=== PATIENT | female | born 1980 ===

== ENCOUNTER 2017-04-07 09:18 | Observation (INO) | payer MEDICAID ==
--- NOTE | 2017-04-07 09:23 | ED PDOC ---
Arrival/HPI - General Time Seen by Provider: 04/07/17 09:21 Historian: Patient - History of Present Illness Narrative History of Present Illness (Text): 04/07/17 09:22 36 year old female, pmh including htn, nkda, complaining of lt. sided chest pain x 1 month. Pt. stated that she has on and off chest pain x 1 month, last episode was this morning while resting, sharp pain, no pain medication taken at home, no coughing or night sweat, no hemoptysis, no recent illness or URI symptoms, no leg or arm swelling/pain, not on any control or recent traveling, was seen at the [facility] about 1 month ago and was observe then discharge home, never follow up with her own pmd or record producer, no rash, no other medical or psychological complaints. Past Medical History - Provider Review Nursing Documentation Reviewed: Yes - Cardiac Hx Cardiac Disorders: Yes Hx Heart Murmur: Yes Hx Hypertension: Yes ( PER PT BP RUNS HIGH SOMETIMES, NOT DIAGNOSED, NOT ON MEDS) - HEENT Other/Comment: WEARS GLASSES, CONTACTS - Hematological/Oncological Hx Blood Disorders: Yes Hx Anemia: Yes Hx Blood Transfusions: Yes ( AN -JAUNDICED) Hx Blood Transfusion Reaction: No - Gastrointestinal Hx Gastrointestinal Disorders: Yes Hx Gastroesophageal Reflux: Yes - Anesthesia Hx Anesthesia: No - Suicidal Assessment Feels Threatened In Home Enviroment: No Family/Social History - Physician Review Nursing Documentation Reviewed: Yes Family/Social History: Unknown Family HX Smoking Status: Light Smoker < 10 Cigarettes Daily Allergies/Home Meds Allergies/Adverse Reactions: Allergies No Known Allergies Allergy (Verified 04/07/17 09:28) Home Medications: Home Meds Medication Instructions Recorded Confirmed No Known Home Med 09/14/16 04/07/17 Review of Systems - Review of Systems Constitutional: absent: Fatigue, Fevers Eyes: absent: Vision Changes ENT: absent: Hearing Changes Respiratory: absent: SOB, Cough, Sputum, Wheezing Cardiovascular: Chest Pain. absent: Palpitations, Edema, Calf Pain, PALOMO, Orthopnea, Syncope Gastrointestinal: absent: Abdominal Pain, Diarrhea, Vomiting Musculoskeletal: absent: Arthralgias, Back Pain, Myalgias Skin: absent: Rash, Pruritis, Skin Lesions Neurological: absent: Headache, Dizziness Psychiatric: absent: Anxiety, Depression, Suicidal Ideation Physical Exam Vital Signs Reviewed: Yes Vital Signs Temp Pulse Resp BP Pulse Ox 04/07/17 11:53 61 16 161/83 H 98 04/07/17 10:19 67 16 141/77 100 04/07/17 09:33 98.2 F 72 17 164/75 H 99 Temperature: Afebrile Blood Pressure: Hypertensive Pulse: Regular Respiratory Rate: Normal Appearance: Positive for: Well-Appearing, Non-Toxic, Comfortable Pain Distress: Moderate Mental Status: Positive for: Alert and Oriented X 3 - Systems Exam Head: Present: Atraumatic, Normocephalic Pupils: Present: PERRL Extroacular Muscles: Present: EOMI Conjunctiva: Present: Normal Mouth: Present: Moist Mucous Membranes Neck: Present: Normal Range of Motion Respiratory/Chest: Present: Clear to Auscultation, Good Air Exchange, Tender to Palpation (chest pain somewhat reproducible by palpating the lt. pectoralist major muscle region, no visible vesicular or erythematous rash noted. ). No: Respiratory Distress, Accessory Muscle Use, Wheezes, Decreased Breath Sounds, Retracting, Rhonchi, Tachypneic Cardiovascular: Present: Regular Rate and Rhythm, Normal S1, S2, Other (no pedal edema). No: Murmurs Abdomen: Present: Normal Bowel Sounds. No: Tenderness, Distention, Peritoneal Signs, Rebound, Guarding Back: Present: Normal Inspection. No: CVA Tenderness, Midline Tenderness Upper Extremity: Present: Normal Inspection. No: Cyanosis, Edema Lower Extremity: Present: Normal Inspection. No: Edema Neurological: Present: GCS=15, CN II-XII Intact, Speech Normal, Motor Func Grossly Intact, Gait Normal, Memory Normal Skin: Present: Warm, Dry, Normal Color. No: Rashes Psychiatric: Present: Alert, Oriented x 3, Normal Insight, Normal Concentration Medical Decision Making ED Course and Treatment: 04/07/17 09:38 -labs/ua/uds -ekg -cxr -IV toradol/pepcid 04/07/17 11:39 -HEART Score is low -PERC is negative -EKG: SR @ 72 BPM with 1 PVC, no ST elevation or depression, no T wave inversion , no previous comparison -Chest xray show no active disease -Urine hcg is negative. -Pain decreased with toradol but chest pain still remain, aspirin 325mg po ordered. -Labs are non-significant but the troponin is indeterminate level with 0.09 which will need trending, offer admission and explained to the patient that she will need to be admitted and evaluated by the record producer since her troponin is 0.09 with no previous comparison. 04/07/17 12:00 -I spoke to Dr. Sandhu, hospitalist conservation or heritage architect, discussed about the labs/radiology result, agreed to admit the patient for observation and troponin trending. -I discussed with Dr. Mae about the/case/labs/radiology result, agreed this patient needs to be admitted to rule out ACS. - Lab Interpretations Lab Results: 04/07/17 09:40 04/07/17 09:40 Lab Results 04/07/17 09:56: Urine Opiates Screen Negative, Urine Methadone Screen Negative, Ur Barbiturates Screen Negative, Ur Phencyclidine Scrn Negative, Ur Amphetamines Screen Negative, U Benzodiazepines Scrn Negative, U Oth Cocaine Metabols Negative, U Cannabinoids Screen Negative 04/07/17 09:56: Urine Color Light yellow, Urine Appearance Clear, Urine pH 6.5, Ur Specific [place] 1.020, Urine Protein Negative, Urine Glucose (UA) Negative, Urine Ketones Negative, Urine Blood Negative, Urine Nitrate Negative, Urine Bilirubin Negative, Urine Urobilinogen 0.2, Ur Leukocyte Esterase Trace H, Urine RBC Negative, Urine WBC 0 - 2, Ur Epithelial Cells 0 - 2, Urine Bacteria None 04/07/17 09:40: Lactate Dehydrogenase 452, Total Creatine Kinase 63, Troponin I 0.09 04/07/17 09:40: WBC 9.7, RBC 4.79, Hgb 12.5, Hct 37.9, MCV 79.1 L, MCH 26.1, MCHC 33.0, RDW 16.1 H, Plt Count 260, MPV 9.9, Gran % 66.4, Lymph % (Auto) 24.6 , [place] % (Auto) 7.2 H, Eos % (Auto) 1.6, Baso % (Auto) 0.2, Gran # 6.44, Lymph # (Auto) 2.4, [place] # (Auto) 0.7 H, Eos # (Auto) 0.2, Baso # (Auto) 0.02 04/07/17 09:40: Sodium 141, Potassium 4.1, Chloride 107, Carbon Dioxide 24, Anion Gap 14, BUN 13, Creatinine 0.7, Est GFR ( Amer) > 60, Est GFR (Non- Af Amer) > 60, Random Glucose 88, Calcium 9.4, Magnesium 1.9, Total Bilirubin 0.5, AST 17, ALT 24, Alkaline Phosphatase 81, Total Protein 7.3, Albumin 3.9, Globulin 3.4, Albumin/Globulin Ratio 1.2 - RAD Interpretation Radiology Orders: 04/07/17 09:33 CHEST PORTABLE [RAD] Stat LUNGS: No active pulmonary disease. PLEURA: No significant pleural effusion identified, no pneumothorax apparent. CARDIOVASCULAR: Normal. OSSEOUS STRUCTURES: No significant abnormalities. VISUALIZED UPPER ABDOMEN: Normal. OTHER FINDINGS: None. IMPRESSION: No active disease. Manager Golf: Radiologist - EKG Interpretation EKG Interpretation (Text): 04/07/17 09:39 -EKG: SR @ 72 BPM with 1 PVC, no ST elevation or depression, no T wave inversion , no previous comparison Interpreted by ED Physician: Yes Type: 12 lead EKG Comparison: No previous EKG avail. - Medication Orders Current Medication Orders: Aspirin (Ecotrin) 81 mg PO DAILY RACHEL Atorvastatin Calcium (Lipitor) 10 mg PO DIN RACHEL Famotidine (Pepcid) 40 mg PO HS RACHEL Discontinued Medications Aspirin (Aspirin) 325 mg PO STAT STA Stop: 04/07/17 11:39 Last Admin: 04/07/17 12:00 Dose: 325 mg Famotidine (Pepcid) 20 mg IVP STAT STA Stop: 04/07/17 09:37 Last Admin: 04/07/17 10:13 Dose: 20 mg IVP Administration Document 04/07/17 10:13 LM (Rec: 04/07/17 10:13 [facility] [id number]) Charges for Administration # of IVP Administrations 1 Ketorolac Tromethamine (Toradol) 30 mg IVP STAT STA Stop: 04/07/17 09:34 Last Admin: 04/07/17 10:12 Dose: 30 mg MAR Pain Assessment Document 04/07/17 10:12 [facility] (Rec: 04/07/17 10:13 LM [id number]) Pain Reassessment Is this a pain reassessment? No Sleep Is patient sleeping during reassessment? No Presence of Pain Presence of Pain Yes Pain Scale Used Pain Scale Used Numeric Location Left, Right or Bilateral Left Pain Location Body Site Chest Description Description Sharp Intensity of Pain at present 6 IVP Administration Document 04/07/17 10:12 [facility] (Rec: 04/07/17 10:13 [facility] [id number]) Charges for Administration # of IVP Administrations 1 - PA / EXERCISE SPECIALIST / Resident Statement MD/DO has reviewed & agrees with the documentation as recorded. Disposition/Present on Arrival - Present on Arrival Any Indicators Present on Arrival: No History of DVT/PE: No History of Uncontrolled Diabetes: No Urinary Catheter: No History of Decub. Ulcer: No - Disposition Have Diagnosis and Disposition been Completed?: Yes Diagnosis: Chest pain Disposition Time: 12:02 Patient Plan: Admission, Observation, Telemetry Patient Problems: Current Active Problems Problem Status Onset Chest pain Acute Condition: STABLE
[2017-04-07 09:50] LABS: BASO # 0.02 K/mm3 (0.0-2.0); BASO % 0.2 % (0.0-3.0); EOS # 0.2 (0.0-0.7); EOS % 1.6 % (1.5-5.0); GRAN # 6.44 (1.4-6.5); GRAN % 66.4 % (50.0-68.0); HEMOGLOBIN 12.5 g/dL (12.0-16.0); LYMPH # 2.4 (1.2-3.4); LYMPH % 24.6 % (22.0-35.0); MEAN CELL VOLUME 79.1 fl (80.0-105.0); MEAN CORPUSCULAR HEMOGLOBIN 26.1 pg (25.0-35.0); MEAN PLATELET VOLUME 9.9 fl (7.0-11.0); MONO # 0.7 (0.1-0.6); MONO % 7.2 % (1.0-6.0); RBC 4.79 10^6/uL (3.5-6.1); RED CELL DISTRIBUTION WIDTH 16.1 % (11.5-14.5); WHITE BLOOD COUNT 9.7 10^3/ul (4.5-11.0)
[2017-04-07 09:59] LABS: ALB/GLOB RATIO 1.2 (1.1-1.8); ALBUMIN 3.9 g/dL (3.0-4.8); ALT/SGPT 24 U/L (7-56); AST/SGOT 17 U/L (14-36); BLOOD UREA NITROGEN 13 mg/dL (7-21); CALCIUM 9.4 mg/dL (8.4-10.5); GFR AFRICAN-AMERICAN > 60; GFR NON-AFRICAN AMERICAN > 60; MAGNESIUM 1.9 mg/dL (1.7-2.2)
[2017-04-07 10:00] LABS: PH,URINE 6.5 (4.7-8.0); URINE BILIRUBIN NEGATIVE (NEGATIVE); URINE BLOOD NEGATIVE (NEGATIVE); URINE GLUCOSE (UA) NEGATIVE (NEGATIVE); URINE LEUKOCYTE ESTERASE TRACE Leu/uL (NEGATIVE); URINE NITRATE NEGATIVE (NEGATIVE); URINE PROTEIN NEGATIVE mg/dL (<30 mg/dL); URINE UROBILINOGEN 0.2 E.U./dL (<1 E.U./dL)
[2017-04-07 10:01] LABS: URINE APPEARANCE CLEAR (CLEAR); URINE COLOR LIGHT YELLOW (YELLOW)
[2017-04-07 10:09] LABS: URINE EPITHELIAL CELLS 0 - 2 /hpf (0-5); URINE RBC NEGATIVE /hpf (0-2); URINE WBC 0 - 2 /hpf (0-6)
[2017-04-07 10:23] LABS: BARBITURATES, UR NEGATIVE (NEGATIVE); BENZODIAZEPINES, UR NEGATIVE (NEGATIVE); OPIATES, UR NEGATIVE (NEGATIVE); PHENCYCLIDINE, UR NEGATIVE (NEGATIVE)
[2017-04-07 11:30] LABS: TROPONIN I 0.09 ng/mL
--- NOTE | 2017-04-07 11:52 | CARD ---
APPROVED REPORT EKG Measurement Heart [id number] <Conclusion> Sinus rhythm with occasional premature ventricular complexes Otherwise normal ECG
--- NOTE | 2017-04-07 12:34 | RAD ---
HISTORY: chest pain COMPARISON: 01/10/2017 FINDINGS: LUNGS: No active pulmonary disease. PLEURA: No significant pleural effusion identified, no pneumothorax apparent. CARDIOVASCULAR: Normal. OSSEOUS STRUCTURES: No significant abnormalities. VISUALIZED UPPER ABDOMEN: Normal. OTHER FINDINGS: None. IMPRESSION: No active disease.
--- NOTE | 2017-04-07 13:48 | CP.PCM.HP ---
<AbisaiSanjuanita - Last Filed: 04/07/17 13:49> History of Present Illness - History of Present Illness History of Present Illness: H&P for Dr. Sandhu 36F with past medical history of HTN untreated due to patient denying presents with 30min prior to arrival. Patient had one episode in the past 1.5 months ago. Patient was admitted to [facility] and had CT chest, stress test, and echo done. Discharged after two days to follow up with Shampoo Person and PMD. Patient did not go. Today, patient did not take medication for chest pain. it's characterized as sharp, radiating to the back. Patient still admits to chest pain, mild leg edema. denies shortness of breath, headaches, neck pain, arm pain, fever, chills, nausea, vomiting, diarrhea, constipation. PMH: HTN, untreated PSH: tubal-ligation Social history: smoker Family history: grandmother had heart disease. Uncle has DM and HTN most recent colonoscopy: 3 polyps - hyperplastic Present on Admission - Present on Admission Any Indicators Present on Admission: No History of DVT/PE: No History of Uncontrolled Diabetes: No Urinary Catheter: No Past Patient History - Infectious Disease Hx of Infectious Diseases: None - Past Medical History & Family History Past Medical History?: Yes - Past Social History Smoking Status: Light Smoker < 10 Cigarettes Daily - CARDIAC Hx Cardiac Disorders: Yes Hx Heart Murmur: Yes Hx Hypertension: Yes ( PER PT BP RUNS HIGH SOMETIMES, NOT DIAGNOSED, NOT ON MEDS) - HEENT Other/Comment: WEARS GLASSES, CONTACTS - HEMATOLOGICAL/ONCOLOGICAL Hx Blood Disorders: Yes Hx Anemia: Yes Hx Blood Transfusions: Yes ( AN INFANT-JAUNDICED) Hx Blood Transfusion Reaction: No - GASTROINTESTINAL Hx Gastrointestinal Disorders: Yes Hx Gastroesophageal Reflux: Yes - SURGICAL HISTORY Hx Surgeries: No - ANESTHESIA Hx Anesthesia: No Meds Allergies/Adverse Reactions: Allergies Allergy/AdvReac Type Severity Reaction Status Date / Time No Known Allergies Allergy Verified 04/07/17 09:28 Physical Exam - Constitutional Appears: Non-toxic, No Acute Distress - Head Exam Head Exam: NORMAL INSPECTION, NORMOCEPHALIC - Eye Exam Eye Exam: EOMI, Normal appearance, PERRL - ENT Exam ENT Exam: Mucous Membranes Moist, Normal Exam - Respiratory Exam Respiratory Exam: Clear to Auscultation Bilateral, NORMAL BREATHING PATTERN. absent: Accessory Muscle Use - Cardiovascular Exam Cardiovascular Exam: REGULAR RHYTHM, +S1, +S2 - GI/Abdominal Exam GI & Abdominal Exam: Normal Bowel Sounds, Soft - Extremities Exam Extremities exam: Positive for: full ROM Additional comments: no pitting edema noted - Back Exam Back exam: FULL ROM - Neurological Exam Neurological exam: Alert, CN II-XII Intact, Oriented x3 - Psychiatric Exam Psychiatric exam: Normal Affect, Normal Mood - Skin Skin Exam: Dry, Intact, Normal Color, Warm Results - Vital Signs Recent Vital Signs: Last Vital Signs Temp 98.2 F 04/07/17 09:33 Pulse 61 04/07/17 11:53 Resp 16 04/07/17 11:53 BP 161/83 H 04/07/17 11:53 Pulse Ox 98 04/07/17 11:53 - Labs Result Diagrams: 04/07/17 09:40 04/07/17 09:40 Assessment & Plan - Assessment and Plan (Free Text) Assessment: Chest pain, acs r/o echo at [facility] normal EF, f/u stress test, f/u CT scan troponin I 0.09 f/u Serial troponin Is PERC negative f/u AM lipid Panel ASA 81mg PO QD Atorvastatin 10mg QHS History of HTN untreated follow up vitals trend and consider adding ACEI Prophylaxis: pepcid 20mg QD SCD, patient can ambulate discussed with Dr. Phoebe Barone DO PGY1 - Date & Time Date: 04/07/17 Time: 13:49 <Kike Sandhu - Last Filed: 04/07/17 15:36> Results - Vital Signs Recent Vital Signs: Last Vital Signs Temp 98.2 F 04/07/17 09:33 Pulse 67 04/07/17 14:02 Resp 16 04/07/17 14:02 BP 139/83 04/07/17 14:02 Pulse Ox 99 04/07/17 14:02 - Labs Result Diagrams: 04/07/17 09:40 04/07/17 09:40 Attending/Attestation - Attestation I have personally seen and examined this patient.: Yes I have fully participated in the care of the patient.: Yes I have reviewed all pertinent clinical information: Yes Notes (Text): 04/07/17 15:32 36 year old female with past medical history of hypertension, not currently on medications, and active smoker who presents with complaint of chest pain. She reports she had recent CT chest, echocardiogram and stress test about one month ago which were negative; will review results if available. Initial troponin is indeterminate at 0.09; will trend and admit to telemetry unit to rule out ACS. Cardiology evaluation is requested. Continue with aspirin. Lipid panel ordered for AM. Monitor blood pressure closely; if elevated will consider started MARIA ELENA-I. She was counselled on smoking cessation. Kike Sandhu MD Hospitalist.
[2017-04-07 17:05] LABS: TROPONIN I 0.13 ng/mL
[2017-04-07] MEDS ORDERED: Heparin25000 units/250ml 1/2NS 25,000 UNITS/250 ML BAG IV SCH (17:15)
[2017-04-07] MEDS: Enoxaparin 60 mg Syringe SC SCH (17:37)
[2017-04-07 18:05] VITALS: BMI 35.2
--- NOTE | 2017-04-07 20:59 | US ---
EXAM: US Abdomen Limited, Right Upper Quadrant CLINICAL HISTORY: 36 years old, female; Pain; Abdominal pain; Additional info: R/O stones TECHNIQUE: Real-time ultrasound of the right upper quadrant with image documentation. COMPARISON: No relevant prior studies available. FINDINGS: Liver: Fatty infiltration. 1.5 x 1.8 x 1.6 cm hyperechoic lesion within right lobe. No intrahepatic ductal dilatation. Gallbladder: No gallstones. No wall thickening. No pericholecystic fluid. No sonographic [place]'s sign. Common bile duct: Up to 0.65 cm in diameter. No stones. Pancreas: Unremarkable as visualized. Right kidney: Normal echogenicity. No hydronephrosis. IMPRESSION: 1. Borderline biliary ductal dilatation. Correlate with laboratory values. Consider MRCP. 2. Liver lesion, nonspecific but possibly hemangioma. Recommend nonemergent MRI. 3. Incidental/non-acute findings are described above.
[2017-04-07 22:44] LABS: TROPONIN I 0.09 ng/mL
--- NOTE | 2017-04-08 01:12 | CON ---
DATE: CARDIOLOGY CONSULTATION REASON FOR CONSULTATION: Chest pain. HISTORY OF PRESENT ILLNESS: Patient is a 36-year-old female who is a [employer] employee, presented because of chest discomfort. The patient stated that as she was combing her daughter's head in the morning, she started to feel a retrosternal chest pain that got worse over the following few seconds and she had to lie on her back until she got some relief. The patient was admitted 1-1/2 months ago to [facility], underwent an echocardiographic study and Myoview stress test, and was told it was okay. The patient at this moment is chest pain free. SOCIAL HISTORY: Patient is a smoker. 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 MENSTRUAL HISTORY: Last menstrual period was around 03/18/2017. REVIEW OF SYSTEMS: No nausea or vomiting. No fever or chills. No dizziness or syncope. PHYSICAL EXAMINATION: GENERAL: The patient is a young middle-aged female, who does not appear to be in any distress. VITAL SIGNS: Blood pressure 139/83, heart rate 69, temperature 98.2, respirations 16. HEENT: Normocephalic. NECK: No JVD. CHEST: Clear. HEART: S1 and S2 regular. ABDOMEN: Soft. EXTREMITIES: No edema. LABORATORY DATA: SMA-7 is entirely within normal limits. One set of troponin is 0.09. Urine drug screen is negative. CBC; WBC is 9.6, hemoglobin 12.5, hematocrit 37.9, platelet count 260,000. EKG; sinus rhythm with PVC. ASSESSMENT: 1. Chest pain, rule out myocardial infarction. 2. Rule out pulmonary infarction. 3. likely possibility of biliary colic. RECOMMENDATIONS: Continue aspirin 81 mg once a day, Lipitor 10 mg once a day, Pepcid at 40 mg once a day. Obtain serum D-dimer, echocardiographic study, and abdominal ultrasound. Ren Rivera MD
[2017-04-08] MEDS: Enoxaparin 60 mg Syringe SC SCH (06:50)
[2017-04-08 07:09] LABS: BASO # 0.02 K/mm3 (0.0-2.0); BASO % 0.2 % (0.0-3.0); EOS # 0.2 (0.0-0.7); EOS % 1.8 % (1.5-5.0); GRAN # 5.53 (1.4-6.5); GRAN % 62.3 % (50.0-68.0); HEMOGLOBIN 12.4 g/dL (12.0-16.0); LYMPH # 2.5 (1.2-3.4); MEAN CELL VOLUME 79.1 fl (80.0-105.0); MEAN CORPUSCULAR HEMOGLOBIN 25.9 pg (25.0-35.0); MEAN CORPUSCULAR HGB CONC 32.7 g/dl (31.0-37.0); MONO # 0.7 (0.1-0.6); MONO % 7.7 % (1.0-6.0); RBC 4.79 10^6/uL (3.5-6.1); RED CELL DISTRIBUTION WIDTH 16.1 % (11.5-14.5); WHITE BLOOD COUNT 8.9 10^3/ul (4.5-11.0)
[2017-04-08 07:20] LABS: ALB/GLOB RATIO 1.1 (1.1-1.8); ALBUMIN 3.7 g/dL (3.0-4.8); ALT/SGPT 22 U/L (7-56); AST/SGOT 21 U/L (14-36); BLOOD UREA NITROGEN 15 mg/dL (7-21); CALCIUM 9.2 mg/dL (8.4-10.5); GFR AFRICAN-AMERICAN > 60; GFR NON-AFRICAN AMERICAN > 60; HDL CHOLESTEROL 46 mg/dL (29-60)
[2017-04-08 07:30] LABS: LDL CHOLESTEROL 66 mg/dL (0-129)
--- NOTE | 2017-04-08 10:58 | CARD ---
APPROVED REPORT EKG Measurement Heart [id number] [id number] [id number] <Conclusion> Normal sinus rhythm with sinus arrhythmia Normal ECG
[2017-04-08] MEDS ORDERED: Lidocaine 2% Inj (20ml) ONE (11:37)
[2017-04-08] MEDS ORDERED: Iodixanol 320 MG/ML 200 ML BOTTLE IV ONE (11:38)
[2017-04-08] MEDS ORDERED: Midazolam 2 MG/2 ML VIAL ONE ×2 (11:38→13:34)
[2017-04-08] MEDS ORDERED: HEPARIN SODIUM/NS 2,000 ML IV ONE (11:38)
--- NOTE | 2017-04-08 12:55 | CP.PCM.DIS ---
Provider - Provider Date of Admission: 04/07/17 12:01 Attending physician: Kike Sandhu MD Primary care physician: Edilma Vasquez DO Consults: Cardio consult Dr. Rivera Time Spent in preparation of Discharge (in minutes): 35 Hospital Course - Lab Results Lab Results: Most Recent Lab Values WBC 8.9 10^3/ul (4.5-11.0) 04/08/17 06:40 RBC 4.79 10^6/uL (3.5-6.1) 04/08/17 06:40 Hgb 12.4 g/dL (12.0-16.0) 04/08/17 06:40 Hct 37.9 % (36.0-48.0) 04/08/17 06:40 MCV 79.1 fl (80.0-105.0) L 04/08/17 06:40 MCH 25.9 pg (25.0-35.0) 04/08/17 06:40 MCHC 32.7 g/dl (31.0-37.0) 04/08/17 06:40 RDW 16.1 % (11.5-14.5) H 04/08/17 06:40 Plt Count 248 10^3/uL (120.0-450.0) 04/08/17 06:40 MPV 10.0 fl (7.0-11.0) 04/08/17 06:40 Gran % 62.3 % (50.0-68.0) 04/08/17 06:40 Lymph % (Auto) 28.0 % (22.0-35.0) 04/08/17 06:40 [place] % (Auto) 7.7 % (1.0-6.0) H 04/08/17 06:40 Eos % (Auto) 1.8 % (1.5-5.0) 04/08/17 06:40 Baso % (Auto) 0.2 % (0.0-3.0) 04/08/17 06:40 Gran # 5.53 (1.4-6.5) 04/08/17 06:40 Lymph # (Auto) 2.5 (1.2-3.4) 04/08/17 06:40 [place] # (Auto) 0.7 (0.1-0.6) H 04/08/17 06:40 Eos # (Auto) 0.2 (0.0-0.7) 04/08/17 06:40 Baso # (Auto) 0.02 K/mm3 (0.0-2.0) 04/08/17 06:40 D-Dimer, Quantitative < 200 ng/mL (0-243) 04/07/17 15:50 Sodium 140 mmol/L (132-148) 04/08/17 06:40 Potassium 4.1 mmol/L (3.6-5.0) 04/08/17 06:40 Chloride 108 mmol/L (98-107) H 04/08/17 06:40 Carbon Dioxide 22 mmol/L (21-33) 04/08/17 06:40 Anion Gap 14 (10-20) 04/08/17 06:40 BUN 15 mg/dL (7-21) 04/08/17 06:40 Creatinine 0.7 mg/dl (0.7-1.2) 04/08/17 06:40 Est GFR ( Amer) > 60 04/08/17 06:40 Est GFR (Non-Af Amer) > 60 04/08/17 06:40 Random Glucose 93 mg/dL (70-110) 04/08/17 06:40 Calcium 9.2 mg/dL (8.4-10.5) 04/08/17 06:40 Magnesium 2.0 mg/dL (1.7-2.2) 04/08/17 06:40 Total Bilirubin 0.4 mg/dL (0.2-1.3) 04/08/17 06:40 AST 21 U/L (14-36) 04/08/17 06:40 ALT 22 U/L (7-56) 04/08/17 06:40 Alkaline Phosphatase 73 U/L (38-126) 04/08/17 06:40 Lactate Dehydrogenase 360 U/L (333-699) 04/07/17 22:10 Total Creatine Kinase 55 U/L (35-230) 04/07/17 22:10 Troponin I 0.09 ng/mL D 04/07/17 22:10 Total Protein 6.9 g/dL (5.8-8.3) 04/08/17 06:40 Albumin 3.7 g/dL (3.0-4.8) 04/08/17 06:40 Globulin 3.2 gm/dL 04/08/17 06:40 Albumin/Globulin Ratio 1.1 (1.1-1.8) 04/08/17 06:40 Triglycerides 84 mg/dL (35-160) 04/08/17 06:40 Cholesterol 139 mg/dL (130-200) 04/08/17 06:40 LDL Cholesterol Direct 66 mg/dL (0-129) 04/08/17 06:40 HDL Cholesterol 46 mg/dL (29-60) 04/08/17 06:40 Urine Color Light yellow (YELLOW) 04/07/17 09:56 Urine Appearance Clear (CLEAR) 04/07/17 09:56 Urine pH 6.5 (4.7-8.0) 04/07/17 09:56 Ur Specific [place] 1.020 (1.005-1.035) 04/07/17 09:56 Urine Protein Negative mg/dL (<30 mg/dL) 04/07/17 09:56 Urine Glucose (UA) Negative mg/dL (NEGATIVE) 04/07/17 09:56 Urine Ketones Negative mg/dL (NEGATIVE) 04/07/17 09:56 Urine Blood Negative (NEGATIVE) 04/07/17 09:56 Urine Nitrate Negative (NEGATIVE) 04/07/17 09:56 Urine Bilirubin Negative (NEGATIVE) 04/07/17 09:56 Urine Urobilinogen 0.2 E.U./dL (<1 E.U./dL) 04/07/17 09:56 Ur Leukocyte Esterase Trace Renetta/uL (NEGATIVE) H 04/07/17 09:56 Urine RBC Negative /hpf (0-2) 04/07/17 09:56 Urine WBC 0 - 2 /hpf (0-6) 04/07/17 09:56 Ur Epithelial Cells 0 - 2 /hpf (0-5) 04/07/17 09:56 Urine Bacteria None (NEG) 04/07/17 09:56 Urine Opiates Screen Negative (NEGATIVE) 04/07/17 09:56 Urine Methadone Screen Negative (NEGATIVE) 04/07/17 09:56 Ur Barbiturates Screen Negative (NEGATIVE) 04/07/17 09:56 Ur Phencyclidine Scrn Negative (NEGATIVE) 04/07/17 09:56 Ur Amphetamines Screen Negative (NEGATIVE) 04/07/17 09:56 U Benzodiazepines Scrn Negative (NEGATIVE) 04/07/17 09:56 U Oth Cocaine Metabols Negative (NEGATIVE) 04/07/17 09:56 U Cannabinoids Screen Negative (NEGATIVE) 04/07/17 09:56 - Hospital Course Hospital Course: H&P for Dr. Sandhu 36F with past medical history of HTN untreated due to patient denying presents with 30min prior to arrival. Patient had one episode in the past 1.5 months ago. Patient was admitted to [facility] and had CT chest, stress test, and echo done. Discharged after two days to follow up with Embossing Toolsetter and PMD. Patient did not go. During hospital stay, cardiology Dr. Rivera was consulted, patient had troponins monitored. trending upward and then trended downward (0.09, 0.13, 0.09 ). Patient had cath procedure done. Gallbladder ultrasound was done showed mild dilatation and gallstones, patient was told to follow up outpatient for further work up (ie: MRCP) Patient's sister had a cholecystectomy in the past. Lipid panel showed no Hyperlipidemia - Date & Time of H&P Date of H&P: 04/08/17 Time of H&P: 12:54 Discharge Exam - Head Exam Head Exam: NORMAL INSPECTION, NORMOCEPHALIC - Eye Exam Eye Exam: EOMI, Normal appearance Pupil Exam: NORMAL ACCOMODATION - ENT Exam ENT Exam: Mucous Membranes Moist - Neck Exam Neck exam: Full Rom - Respiratory Exam Respiratory Exam: Clear to PA & Lateral, NORMAL BREATHING PATTERN, UNREMARKABLE. absent: Accessory Muscle Use - Cardiovascular Exam Cardiovascular Exam: REGULAR RHYTHM, +S1, +S2. absent: Bradycardia, Tachycardia - GI/Abdominal Exam GI & Abdominal Exam: Normal Bowel Sounds, Unremarkable - Extremities Exam Extremities exam: full ROM - Back Exam Back exam: FULL ROM - Neurological Exam Neurological exam: Alert, CN II-XII Intact, Normal Gait, Oriented x3 - Psychiatric Exam Psychiatric exam: Normal Affect, Normal Mood - Skin Skin Exam: Dry, Intact, Normal Color, Warm Discharge Plan - Follow Up Plan Condition: STABLE Disposition: HOME/ ROUTINE Additional Instructions: follow up with Dr. Vasquez, referral for GI doctor for further workup, and cardiology for further cardiology workup Referrals: Edilma Vasquez DO [Primary Care Provider] -
--- NOTE | 2017-04-08 13:26 | PN ---
DATE: SUBJECTIVE: The patient denies any chest pain or shortness of breath. PHYSICAL EXAMINATION VITAL SIGNS: Blood pressure 126/64, heart rate 96, temperature 98.6, respirations 20. HEENT: Normocephalic. CHEST: Clear. HEART: S1 and S2 regular. EXTREMITIES: No edema. LABORATORY DATA: Second troponin was 0.13. ASSESSMENT: Chest pain with borderline troponin elevation. RECOMMENDATIONS: Continue current aspirin, a loading dose of 300 mg Plavix given. Continue Lipitor. Cardiac catheterization was recommended. The patient agreed and the procedure will be performed this afternoon by Dr. Stiven Scott. Ren Rivera MD
[2017-04-08] MEDS ORDERED: Sodium Chloride 0.9% 1,000 ML IV SCH ×2 (14:15→21:30)
[2017-04-08] MEDS ORDERED: Morphine 2 mg/ml ISec IVP PRN (16:13)
--- NOTE | 2017-04-08 18:10 | CP.PCM.PN ---
<Sanjuanita Barone - Last Filed: 04/08/17 18:10> Subjective - Date & Time of Evaluation Date of Evaluation: 04/08/17 Time of Evaluation: 18:09 - Subjective Subjective: Progress note for Dr. Sandhu Patient seen and examined at bedside. Patient still feels a little pain in her back, but denies any problems overnight. Patient denies chest pain, fever, chills, nausea, vomiting, diarrhea, constipation. Patient was told she was getting cath today. Cath showed normal coronary arteries Objective - Vital Signs/Intake and Output Vital Signs (last 24 hours): Temp Pulse Resp BP Pulse Ox 99.3 F 58 L 18 130/75 98 04/08/17 17:40 04/08/17 17:40 04/08/17 17:40 04/08/17 17:40 04/08/17 12:00 Intake and Output: 04/08/17 04/08/17 06:59 18:59 Intake Total 780 Balance 780 - Medications Medications: Current Medications Acetaminophen (Tylenol 325mg Tab) 650 mg PO Q6H PRN PRN Reason: Pain, moderate (4-7) Atorvastatin Calcium (Lipitor) 40 mg PO DIN [facility] Last Admin: 04/08/17 17:37 Dose: 40 mg Famotidine (Pepcid) 40 mg PO HS [facility] Last Admin: 04/07/17 21:51 Dose: 40 mg Sodium Chloride (Sodium Chloride 0.9%) 1,000 mls @ 100 mls/hr IV .Q10H [facility] Stop: 04/08/17 21:00 Last Admin: 04/08/17 16:51 Dose: Not Given Morphine Sulfate (Morphine) 1 mg IVP Q6H PRN PRN Reason: Pain, severe (8-10) Last Admin: 04/08/17 16:49 Dose: 1 mg - Labs Labs: 04/08/17 06:40 04/08/17 06:40 - Constitutional Appears: Non-toxic, No Acute Distress - Head Exam Head Exam: ATRAUMATIC, NORMAL INSPECTION, NORMOCEPHALIC - Eye Exam Eye Exam: EOMI, Normal appearance, PERRL Pupil Exam: NORMAL ACCOMODATION - Respiratory Exam Respiratory Exam: Clear to Ausculation Bilateral, NORMAL BREATHING PATTERN - Cardiovascular Exam Cardiovascular Exam: REGULAR RHYTHM, +S1, +S2 - GI/Abdominal Exam GI & Abdominal Exam: Soft, Normal Bowel Sounds - Back Exam Back Exam: Full ROM - Neurological Exam Neurological Exam: Alert, Awake, Normal Gait, Oriented x3 - Skin Skin Exam: Dry, Erythema, Intact Assessment and Plan - Assessment and Plan (Free Text) Assessment: 36 F with pmh of htn without medical management presents with chest pain Chest pain, acs r/o echo at [facility] normal EF, f/u stress test, f/u CT scan troponin I 0.09 f/u Serial troponin Is PERC negative AM lipid Panel CAth done by Cardio consult Dr. Rivera: patent coronary arteries. CTA chest ordered ASA 81mg PO QD Atorvastatin 10mg QHS History of HTN untreated follow up vitals trend and consider adding ACEI Prophylaxis: pepcid 20mg QD SCD, patient can ambulate Patient to be discharged to follow up with GI for further workup with possible MRCP and cardiology for further recommendations discussed with Dr. Phoebe Barone DO PGY1 <Kike Sandhu - Last Filed: 04/08/17 21:00> Objective - Vital Signs/Intake and Output Vital Signs (last 24 hours): Temp Pulse Resp BP Pulse Ox 98.4 F 61 18 131/88 98 04/08/17 20:00 04/08/17 20:56 04/08/17 20:56 04/08/17 20:56 04/08/17 12:00 - Medications Medications: Current Medications Acetaminophen (Tylenol 325mg Tab) 650 mg PO Q6H PRN PRN Reason: Pain, moderate (4-7) Atorvastatin Calcium (Lipitor) 40 mg PO DIN [facility] Last Admin: 04/08/17 17:37 Dose: 40 mg Famotidine (Pepcid) 40 mg PO HS [facility] Last Admin: 04/07/17 21:51 Dose: 40 mg Sodium Chloride (Sodium Chloride 0.9%) 1,000 mls @ 100 mls/hr IV .Q10H [facility] Stop: 04/08/17 21:00 Last Admin: 04/08/17 16:51 Dose: Not Given Morphine Sulfate (Morphine) 1 mg IVP Q6H PRN PRN Reason: Pain, severe (8-10) Last Admin: 04/08/17 16:49 Dose: 1 mg - Labs Labs: 04/08/17 06:40 04/08/17 06:40 Attending/Attestation - Attestation I have personally seen and examined this patient.: Yes I have fully participated in the care of the patient.: Yes I have reviewed all pertinent clinical information, including history, physical exam and plan: Yes Notes (Text): 04/08/17 20:58 36 year old female with past medical history of hypertension, not currently on medications, and active smoker who presented with complaint of chest pain. She was found to have indeterminate to mildly elevated troponin and started on aspirin, plavix, statin and lovenox. She underwent cardiac cath today which showed normal coronaries as per cardiology. Case was discussed with Dr. Scott who recommended CT angio which is ordered and pending. She was counselled on smoking cessation. Kike Sandhu MD Hospitalist.
[2017-04-08] MEDS ORDERED: Iohexol 350 MG/100 ML VIAL ONE (19:35)
--- NOTE | 2017-04-08 21:03 | CT ---
EXAM: CT Angiography Chest With Intravenous Contrast CLINICAL HISTORY: 36 years old, female; Pain; Chest pain TECHNIQUE: Axial computed tomographic angiography images of the chest with intravenous contrast using pulmonary embolism protocol. All CT scans at this facility use one or more dose reduction techniques, viz.: automated exposure control; ma/kV adjustment per patient size (including targeted exams where dose is matched to indication; i.e. head); or iterative reconstruction technique. MIP reconstructed images were created and reviewed. Coronal and sagittal reformatted images were created and reviewed. CONTRAST: 91 mL of OMNI 350 administered intravenously. COMPARISON: DX - CHEST PORTABLE 2017-04-07 10:19 FINDINGS: Limitations: Motion artifact - mild. Pulmonary arteries: No definite pulmonary embolism. Aorta: No aneurysm. No dissection. Lungs: Minimal atelectasis/scarring. No consolidation. Pleural space: No significant effusion. No pneumothorax. Heart: Mild cardiomegaly. No significant pericardial effusion. Bones/joints: No acute fracture. Soft tissues: Unremarkable. Lymph nodes: No pathologically enlarged lymph nodes. IMPRESSION: 1. No definite CT evidence of pulmonary embolism. 2. Incidental/non-acute findings are described above.
--- NOTE | 2017-04-08 21:46 | CP.PCM.PN ---
Subjective - Date & Time of Evaluation Date of Evaluation: 04/08/17 Time of Evaluation: 21:30 - Subjective Subjective: Responded to RAPID RESPONSE promptly. Patient just came back from CT scan where she had CT angio chest done, she had sinus pause on monitor for for 10 seconds. Patient felt very hot, felt something snapped in right groin, had bradycardia and BP was 90/42 , pulse ox 100 % on 2L/min. Went to reach drawer, felt something popping in right groin She states that she passed out momentarily. FSBS 111 mg %, HR 47/ min. CT angio chest is negative for PE. There is good Dorsalis Pedis pulse on right side. Right groin area has no hematoma, dressing is clean and dry. She had diagnostic cardiac cath done which was reportedly negative. This 36 year old woman was admitted with chest pain. Has PMH of obesity, HTN, tubal ligation, smoker. FH : DM, HTN. Objective - Vital Signs/Intake and Output Vital Signs (last 24 hours): Temp Pulse Resp BP Pulse Ox 98.4 F 61 18 119/79 98 04/08/17 20:00 04/08/17 20:00 04/08/17 20:00 04/08/17 20:00 04/08/17 12:00 - Medications Medications: Current Medications Acetaminophen (Tylenol 325mg Tab) 650 mg PO Q6H PRN PRN Reason: Pain, moderate (4-7) Atorvastatin Calcium (Lipitor) 40 mg PO DIN [facility] Last Admin: 04/08/17 17:37 Dose: 40 mg Famotidine (Pepcid) 40 mg PO HS [facility] Last Admin: 04/07/17 21:51 Dose: 40 mg Sodium Chloride (Sodium Chloride 0.9%) 1,000 mls @ 100 mls/hr IV .Q10H [facility] Morphine Sulfate (Morphine) 1 mg IVP Q6H PRN PRN Reason: Pain, severe (8-10) Last Admin: 04/08/17 16:49 Dose: 1 mg - Labs Labs: 04/08/17 06:40 04/08/17 06:40 Micro Results 04/07/17 10:53 Urine,Clean Catch Urine Culture - Final No Growth (<1,000 CFU/ML) Most Recent Lab Values WBC 8.9 10^3/ul (4.5-11.0) 04/08/17 06:40 RBC 4.79 10^6/uL (3.5-6.1) 04/08/17 06:40 Hgb 12.4 g/dL (12.0-16.0) 04/08/17 06:40 Hct 37.9 % (36.0-48.0) 04/08/17 06:40 MCV 79.1 fl (80.0-105.0) L 04/08/17 06:40 MCH 25.9 pg (25.0-35.0) 04/08/17 06:40 MCHC 32.7 g/dl (31.0-37.0) 04/08/17 06:40 RDW 16.1 % (11.5-14.5) H 04/08/17 06:40 Plt Count 248 10^3/uL (120.0-450.0) 04/08/17 06:40 MPV 10.0 fl (7.0-11.0) 04/08/17 06:40 Gran % 62.3 % (50.0-68.0) 04/08/17 06:40 Lymph % (Auto) 28.0 % (22.0-35.0) 04/08/17 06:40 [place] % (Auto) 7.7 % (1.0-6.0) H 04/08/17 06:40 Eos % (Auto) 1.8 % (1.5-5.0) 04/08/17 06:40 Baso % (Auto) 0.2 % (0.0-3.0) 04/08/17 06:40 Gran # 5.53 (1.4-6.5) 04/08/17 06:40 Lymph # (Auto) 2.5 (1.2-3.4) 04/08/17 06:40 [place] # (Auto) 0.7 (0.1-0.6) H 04/08/17 06:40 Eos # (Auto) 0.2 (0.0-0.7) 04/08/17 06:40 Baso # (Auto) 0.02 K/mm3 (0.0-2.0) 04/08/17 06:40 D-Dimer, Quantitative < 200 ng/mL (0-243) 04/07/17 15:50 Sodium 140 mmol/L (132-148) 04/08/17 06:40 Potassium 4.1 mmol/L (3.6-5.0) 04/08/17 06:40 Chloride 108 mmol/L (98-107) H 04/08/17 06:40 Carbon Dioxide 22 mmol/L (21-33) 04/08/17 06:40 Anion Gap 14 (10-20) 04/08/17 06:40 BUN 15 mg/dL (7-21) 04/08/17 06:40 Creatinine 0.7 mg/dl (0.7-1.2) 04/08/17 06:40 Est GFR ( Amer) > 60 04/08/17 06:40 Est GFR (Non-Af Amer) > 60 04/08/17 06:40 POC Glucose (mg/dL) 111 mg/dL (65-110) H 04/08/17 21:11 Random Glucose 93 mg/dL (70-110) 04/08/17 06:40 Calcium 9.2 mg/dL (8.4-10.5) 04/08/17 06:40 Magnesium 2.0 mg/dL (1.7-2.2) 04/08/17 06:40 Total Bilirubin 0.4 mg/dL (0.2-1.3) 04/08/17 06:40 AST 21 U/L (14-36) 04/08/17 06:40 ALT 22 U/L (7-56) 04/08/17 06:40 Alkaline Phosphatase 73 U/L (38-126) 04/08/17 06:40 Lactate Dehydrogenase 360 U/L (333-699) 04/07/17 22:10 Total Creatine Kinase 55 U/L (35-230) 04/07/17 22:10 Troponin I 0.09 ng/mL D 04/07/17 22:10 Total Protein 6.9 g/dL (5.8-8.3) 04/08/17 06:40 Albumin 3.7 g/dL (3.0-4.8) 04/08/17 06:40 Globulin 3.2 gm/dL 04/08/17 06:40 Albumin/Globulin Ratio 1.1 (1.1-1.8) 04/08/17 06:40 Triglycerides 84 mg/dL (35-160) 04/08/17 06:40 Cholesterol 139 mg/dL (130-200) 04/08/17 06:40 LDL Cholesterol Direct 66 mg/dL (0-129) 04/08/17 06:40 HDL Cholesterol 46 mg/dL (29-60) 04/08/17 06:40 Urine Color Light yellow (YELLOW) 04/07/17 09:56 Urine Appearance Clear (CLEAR) 04/07/17 09:56 Urine pH 6.5 (4.7-8.0) 04/07/17 09:56 Ur Specific [place] 1.020 (1.005-1.035) 04/07/17 09:56 Urine Protein Negative mg/dL (<30 mg/dL) 04/07/17 09:56 Urine Glucose (UA) Negative mg/dL (NEGATIVE) 04/07/17 09:56 Urine Ketones Negative mg/dL (NEGATIVE) 04/07/17 09:56 Urine Blood Negative (NEGATIVE) 04/07/17 09:56 Urine Nitrate Negative (NEGATIVE) 04/07/17 09:56 Urine Bilirubin Negative (NEGATIVE) 04/07/17 09:56 Urine Urobilinogen 0.2 E.U./dL (<1 E.U./dL) 04/07/17 09:56 Ur Leukocyte Esterase Trace [place]/uL (NEGATIVE) H 04/07/17 09:56 Urine RBC Negative /hpf (0-2) 04/07/17 09:56 Urine WBC 0 - 2 /hpf (0-6) 04/07/17 09:56 Ur Epithelial Cells 0 - 2 /hpf (0-5) 04/07/17 09:56 Urine Bacteria None (NEG) 04/07/17 09:56 Urine Opiates Screen Negative (NEGATIVE) 04/07/17 09:56 Urine Methadone Screen Negative (NEGATIVE) 04/07/17 09:56 Ur Barbiturates Screen Negative (NEGATIVE) 04/07/17 09:56 Ur Phencyclidine Scrn Negative (NEGATIVE) 04/07/17 09:56 Ur Amphetamines Screen Negative (NEGATIVE) 04/07/17 09:56 U Benzodiazepines Scrn Negative (NEGATIVE) 04/07/17 09:56 U Oth Cocaine Metabols Negative (NEGATIVE) 04/07/17 09:56 U Cannabinoids Screen Negative (NEGATIVE) 04/07/17 09:56 - Constitutional Appears: Well, No Acute Distress - Head Exam Head Exam: ATRAUMATIC, NORMAL INSPECTION, NORMOCEPHALIC - Eye Exam Eye Exam: Normal appearance - ENT Exam ENT Exam: Normal External Ear Exam - Neck Exam Neck Exam: Normal Inspection - Respiratory Exam Respiratory Exam: NORMAL BREATHING PATTERN - Cardiovascular Exam Cardiovascular Exam: REGULAR RHYTHM, +S1 (Normal.), +S2 (Normal.). absent: JVD - GI/Abdominal Exam GI & Abdominal Exam: absent: Distended - Rectal Exam Rectal Exam: Deferred - Exam Additional comments: Deferred. - Extremities Exam Extremities Exam: Normal Inspection Additional comments: Right inguinal area has no swelling, no bleeding. Right dorsalis pedis pulse +++. - Back Exam Back Exam: NORMAL INSPECTION - Neurological Exam Neurological Exam: Alert, Oriented x3 - Psychiatric Exam Psychiatric exam: Normal Affect, Normal Mood - Skin Skin Exam: Normal Color Assessment and Plan - Assessment and Plan (Free Text) Assessment: Sinus Pause. Hypotension. Sinus bradycardia. ?Orthostatic hypotension. S/P cardiac cath. HTN. Obesity. Plan: Normal saline bolus 500 CC IV x 1. CBC, CMP, trop. EKG- Sinus bradycardia. CXR-NAD. FSBS --111 mg%. Placed a call to . May have to do CT abdomen/pelvis. Repeat CBC in AM. BP 138/87 , HR 83/min.
--- NOTE | 2017-04-08 21:51 | CARDCATH ---
PROCEDURE DATE: 04/08/2017 CARDIAC CATHETERIZATION HISTORY: The patient is a 36-year-old woman, who presents with chest pain. She was noted to have troponins that were mildly elevated. Because of this, cardiac catheterization was recommended. PROCEDURE: Left heart catheterization with coronary arteriography and left ventriculogram. Right femoral artery was cannulated with a 6-Macedonian sheath. There were no complications. I performed moderate sedation, which included the presence of an independent trained observer that assisted in monitoring the patient's level of consciousness and physiologic status. After administration of Versed and fentanyl, my intra service time was 15 minutes. The findings on catheterization revealed a left ventricle that contracted normally. Estimated ejection fraction was 60%. The coronary anatomy revealed a right dominant circulation. The RCA was a tortuous vessel and was free of significant disease. The left main artery was within normal limits. The LAD and diagonal vessels were tortuous, but no critical lesions were noted. The circumflex artery and obtuse marginal branch revealed minimal intimal irregularities with no critical lesions. Angio-Seal was used to close the femoral artery site. The patient tolerated the procedure well. In summary, the procedure revealed normal LV function. Normal coronary arteries. Given these findings, the borderline elevated troponins cannot be explained by ischemic cardiac disease. I would suggest investigation into a different source of her intermediate troponins. Stiven Scott MD
[2017-04-08 22:37] LABS: BASO # 0.01 K/mm3 (0.0-2.0); BASO % 0.1 % (0.0-3.0); EOS # 0.1 (0.0-0.7); EOS % 1.2 % (1.5-5.0); GRAN # 8.96 (1.4-6.5); HEMOGLOBIN 11.8 g/dL (12.0-16.0); LYMPH # 1.5 (1.2-3.4); LYMPH % 13.4 % (22.0-35.0); MEAN CELL VOLUME 80.2 fl (80.0-105.0); MEAN CORPUSCULAR HGB CONC 32.4 g/dl (31.0-37.0); MEAN PLATELET VOLUME 9.8 fl (7.0-11.0); MONO # 0.7 (0.1-0.6); MONO % 6.3 % (1.0-6.0); RBC 4.54 10^6/uL (3.5-6.1); WHITE BLOOD COUNT 11.4 10^3/ul (4.5-11.0)
[2017-04-08 23:03] LABS: ALB/GLOB RATIO 1.1 (1.1-1.8); ALBUMIN 3.5 g/dL (3.0-4.8); ALT/SGPT 24 U/L (7-56); AST/SGOT 17 U/L (14-36); BLOOD UREA NITROGEN 10 mg/dL (7-21); CALCIUM 8.8 mg/dL (8.4-10.5); GFR AFRICAN-AMERICAN > 60; GFR NON-AFRICAN AMERICAN > 60
[2017-04-09 06:09] LABS: BASO # 0.01 K/mm3 (0.0-2.0); BASO % 0.1 % (0.0-3.0); EOS # 0.1 (0.0-0.7); EOS % 1.2 % (1.5-5.0); GRAN # 8.03 (1.4-6.5); GRAN % 81.9 % (50.0-68.0); HEMOGLOBIN 11.9 g/dL (12.0-16.0); LYMPH # 1.1 (1.2-3.4); LYMPH % 11.3 % (22.0-35.0); MEAN CELL VOLUME 79.9 fl (80.0-105.0); MEAN CORPUSCULAR HGB CONC 32.5 g/dl (31.0-37.0); MEAN PLATELET VOLUME 10.1 fl (7.0-11.0); MONO # 0.5 (0.1-0.6); MONO % 5.5 % (1.0-6.0); RBC 4.58 10^6/uL (3.5-6.1); RED CELL DISTRIBUTION WIDTH 16.1 % (11.5-14.5); WHITE BLOOD COUNT 9.8 10^3/ul (4.5-11.0)
[2017-04-09 06:37] VITALS: O2SAT 97
[2017-04-09 06:38] LABS: ALB/GLOB RATIO 1.1 (1.1-1.8); ALBUMIN 3.4 g/dL (3.0-4.8); ALT/SGPT 25 U/L (7-56); AST/SGOT 17 U/L (14-36); BLOOD UREA NITROGEN 12 mg/dL (7-21); CALCIUM 9.1 mg/dL (8.4-10.5); GFR AFRICAN-AMERICAN > 60; GFR NON-AFRICAN AMERICAN > 60; MAGNESIUM 1.9 mg/dL (1.7-2.2)
--- NOTE | 2017-04-09 08:09 | RAD ---
HISTORY: Rapid Response COMPARISON: 04/07/2017. FINDINGS: LUNGS: The lungs are well inflated and clear. PLEURA: No significant pleural effusion identified, no pneumothorax apparent. CARDIOVASCULAR: Normal. OSSEOUS STRUCTURES: No significant abnormalities. VISUALIZED UPPER ABDOMEN: Normal. OTHER FINDINGS: None. IMPRESSION: No active pulmonary disease.
--- NOTE | 2017-04-09 10:02 | CARD ---
APPROVED REPORT EKG Measurement Heart [id number] <Conclusion> Sinus bradycardia Otherwise normal ECG
--- NOTE | 2017-04-09 12:21 | CP.PCM.PN ---
Subjective - Date & Time of Evaluation Date of Evaluation: 04/09/17 Time of Evaluation: 12:19 - Subjective Subjective: Progress note for Dr. Sandhu Patient seen and examined at bedside. Patient still feels a little pain in her chest. Yesterday, rapid response was done after patient experienced a vasovagal syncopal episode and 10 sec asystole per tele monitor after reaching over to side stand to grab something and experiencing a sharp pain at cath insertion site and a popping sound from tegaderm. PAtient admits to minimal chest pain, Patient denies fever, chills, nausea, vomiting, diarrhea, constipation. Cath showed normal coronary arteries. CTA was negative for PE and negative for dissection. Objective - Vital Signs/Intake and Output Vital Signs (last 24 hours): Temp Pulse Resp BP Pulse Ox 98.9 F 64 18 126/73 97 04/09/17 11:42 04/09/17 11:42 04/09/17 11:42 04/09/17 11:42 04/09/17 07:30 Intake and Output: 04/09/17 04/09/17 06:59 18:59 Intake Total 480 Output Total 1200 Balance -720 - Medications Medications: Current Medications Acetaminophen (Tylenol 325mg Tab) 650 mg PO Q6H PRN PRN Reason: Pain, moderate (4-7) Atorvastatin Calcium (Lipitor) 40 mg PO DIN [facility] Last Admin: 04/08/17 17:37 Dose: 40 mg Famotidine (Pepcid) 40 mg PO HS [facility] Last Admin: 04/07/17 21:51 Dose: 40 mg Sodium Chloride (Sodium Chloride 0.9%) 1,000 mls @ 100 mls/hr IV .Q10H [facility] Last Admin: 04/08/17 22:00 Dose: 100 mls/hr Morphine Sulfate (Morphine) 1 mg IVP Q6H PRN PRN Reason: Pain, severe (8-10) Last Admin: 04/08/17 16:49 Dose: 1 mg - Labs Labs: 04/09/17 05:20 04/09/17 05:10
--- NOTE | 2017-04-09 15:29 | US ---
PROCEDURE: Duplex arterial ultrasound of the right groin. HISTORY: Recent cardiac catheterization. Pain and pulsatile mass in the right groin. Evaluate for pseudoaneurysm or fistula. PHYSICIAN(S): Stiven Anna MD. FINDINGS: The right common femoral artery is patent with a normal triphasic waveform. No sonographic evidence of a pseudoaneurysm or AV fistula is seen. The right superficial femoral artery and profunda femoral artery are patent proximally. The visualized venous segments the right groin are patent and compressible. IMPRESSION: 1. No sonographic evidence for pseudoaneurysm or AV fistula in the right groin.
--- NOTE | 2017-04-09 16:26 | CP.PCM.DIS ---
<AbisaiSanjuanita - Last Filed: 04/09/17 16:27> Provider - Provider Date of Admission: 04/07/17 12:01 Attending physician: Kike Sandhu MD Primary care physician: Edilma Vasquez DO Consults: Dr. Rivera Time Spent in preparation of Discharge (in minutes): 35 Hospital Course - Lab Results Lab Results: Most Recent Lab Values WBC 9.8 10^3/ul (4.5-11.0) 04/09/17 05:20 RBC 4.58 10^6/uL (3.5-6.1) 04/09/17 05:20 Hgb 11.9 g/dL (12.0-16.0) L 04/09/17 05:20 Hct 36.6 % (36.0-48.0) 04/09/17 05:20 MCV 79.9 fl (80.0-105.0) L 04/09/17 05:20 MCH 26.0 pg (25.0-35.0) 04/09/17 05:20 MCHC 32.5 g/dl (31.0-37.0) 04/09/17 05:20 RDW 16.1 % (11.5-14.5) H 04/09/17 05:20 Plt Count 237 10^3/uL (120.0-450.0) 04/09/17 05:20 MPV 10.1 fl (7.0-11.0) 04/09/17 05:20 Gran % 81.9 % (50.0-68.0) H 04/09/17 05:20 Lymph % (Auto) 11.3 % (22.0-35.0) L 04/09/17 05:20 [place] % (Auto) 5.5 % (1.0-6.0) 04/09/17 05:20 Eos % (Auto) 1.2 % (1.5-5.0) L 04/09/17 05:20 Baso % (Auto) 0.1 % (0.0-3.0) 04/09/17 05:20 Gran # 8.03 (1.4-6.5) H 04/09/17 05:20 Lymph # (Auto) 1.1 (1.2-3.4) L 04/09/17 05:20 [place] # (Auto) 0.5 (0.1-0.6) 04/09/17 05:20 Eos # (Auto) 0.1 (0.0-0.7) 04/09/17 05:20 Baso # (Auto) 0.01 K/mm3 (0.0-2.0) 04/09/17 05:20 D-Dimer, Quantitative < 200 ng/mL (0-243) 04/07/17 15:50 Sodium 140 mmol/L (132-148) 04/09/17 05:10 Potassium 4.6 mmol/L (3.6-5.0) 04/09/17 05:10 Chloride 108 mmol/L (98-107) H 04/09/17 05:10 Carbon Dioxide 25 mmol/L (21-33) 04/09/17 05:10 Anion Gap 12 (10-20) 04/09/17 05:10 BUN 12 mg/dL (7-21) 04/09/17 05:10 Creatinine 0.7 mg/dl (0.7-1.2) 04/09/17 05:10 Est GFR ( Amer) > 60 04/09/17 05:10 Est GFR (Non-Af Amer) > 60 04/09/17 05:10 POC Glucose (mg/dL) 111 mg/dL (65-110) H 04/08/17 21:11 Random Glucose 102 mg/dL (70-110) 04/09/17 05:10 Calcium 9.1 mg/dL (8.4-10.5) 04/09/17 05:10 Magnesium 1.9 mg/dL (1.7-2.2) 04/09/17 05:10 Total Bilirubin 0.5 mg/dL (0.2-1.3) 04/09/17 05:10 AST 17 U/L (14-36) 04/09/17 05:10 ALT 25 U/L (7-56) 04/09/17 05:10 Alkaline Phosphatase 80 U/L (38-126) 04/09/17 05:10 Lactate Dehydrogenase 336 U/L (333-699) 04/08/17 22:40 Total Creatine Kinase 52 U/L (35-230) 04/08/17 22:40 Troponin I 0.10 ng/mL 04/08/17 22:40 Total Protein 6.6 g/dL (5.8-8.3) 04/09/17 05:10 Albumin 3.4 g/dL (3.0-4.8) 04/09/17 05:10 Globulin 3.1 gm/dL 04/09/17 05:10 Albumin/Globulin Ratio 1.1 (1.1-1.8) 04/09/17 05:10 Triglycerides 84 mg/dL (35-160) 04/08/17 06:40 Cholesterol 139 mg/dL (130-200) 04/08/17 06:40 LDL Cholesterol Direct 66 mg/dL (0-129) 04/08/17 06:40 HDL Cholesterol 46 mg/dL (29-60) 04/08/17 06:40 Urine Color Light yellow (YELLOW) 04/07/17 09:56 Urine Appearance Clear (CLEAR) 04/07/17 09:56 Urine pH 6.5 (4.7-8.0) 04/07/17 09:56 Ur Specific [place] 1.020 (1.005-1.035) 04/07/17 09:56 Urine Protein Negative mg/dL (<30 mg/dL) 04/07/17 09:56 Urine Glucose (UA) Negative mg/dL (NEGATIVE) 04/07/17 09:56 Urine Ketones Negative mg/dL (NEGATIVE) 04/07/17 09:56 Urine Blood Negative (NEGATIVE) 04/07/17 09:56 Urine Nitrate Negative (NEGATIVE) 04/07/17 09:56 Urine Bilirubin Negative (NEGATIVE) 04/07/17 09:56 Urine Urobilinogen 0.2 E.U./dL (<1 E.U./dL) 04/07/17 09:56 Ur Leukocyte Esterase Trace Renetta/uL (NEGATIVE) H 04/07/17 09:56 Urine RBC Negative /hpf (0-2) 04/07/17 09:56 Urine WBC 0 - 2 /hpf (0-6) 04/07/17 09:56 Ur Epithelial Cells 0 - 2 /hpf (0-5) 04/07/17 09:56 Urine Bacteria None (NEG) 04/07/17 09:56 Urine Opiates Screen Negative (NEGATIVE) 04/07/17 09:56 Urine Methadone Screen Negative (NEGATIVE) 04/07/17 09:56 Ur Barbiturates Screen Negative (NEGATIVE) 04/07/17 09:56 Ur Phencyclidine Scrn Negative (NEGATIVE) 04/07/17 09:56 Ur Amphetamines Screen Negative (NEGATIVE) 04/07/17 09:56 U Benzodiazepines Scrn Negative (NEGATIVE) 04/07/17 09:56 U Oth Cocaine Metabols Negative (NEGATIVE) 04/07/17 09:56 U Cannabinoids Screen Negative (NEGATIVE) 04/07/17 09:56 - Hospital Course Hospital Course: 36F with past medical history of HTN untreated due to patient denying presents with 30min prior to arrival. Patient had one episode in the past 1.5 months ago. Patient was admitted to [facility] and had CT chest, stress test, and echo done. Discharged after two days to follow up with Assistant Customer Service Manager and PMD. Patient did not go. Today, patient did not take medication for chest pain. it's characterized as sharp, radiating to the back. Cardiology Consult Dr. Rivera was consulted, echo was done, patient had normal EF. Patient had cath by DR. Scott showing patent coronary arteries. With the indeterminate troponins, patient had CTA chest which was negative for dissection and negative for PE Patient seen and examined at bedside. Patient still feels a little pain in her chest. Yesterday, rapid response was done after patient experienced a vasovagal syncopal episode and 10 sec asystole per tele monitor after reaching over to side stand to grab something and experiencing a sharp pain at cath insertion site and a popping sound from tegaderm. PAtient admits to minimal chest pain, Patient denies fever, chills, nausea, vomiting, diarrhea, constipation. Patient had mildly dilated cbd and gallstones for which patient was instructed to follow up with GI outpatient for possible MRCP and further workup. Patient discharged with instructions to follow up with GI, Cardiology and primary care doctor. - Date & Time of H&P Date of H&P: 04/09/17 Time of H&P: 16:23 Discharge Exam - Head Exam Head Exam: ATRAUMATIC, NORMAL INSPECTION, NORMOCEPHALIC - Eye Exam Eye Exam: EOMI, Normal appearance, PERRL Pupil Exam: NORMAL ACCOMODATION - ENT Exam ENT Exam: Mucous Membranes Moist - Neck Exam Neck exam: Full Rom - Respiratory Exam Respiratory Exam: Clear to PA & Lateral, NORMAL BREATHING PATTERN - Cardiovascular Exam Cardiovascular Exam: REGULAR RHYTHM, +S1, +S2 - GI/Abdominal Exam GI & Abdominal Exam: Normal Bowel Sounds, Soft - Extremities Exam Extremities exam: full ROM Additional comments: tenderness at catheter insertion site. no hematoma, bruit, ecchymosis no leg edema. no gross asymmetry noted of lower extremities. no abnormal discoloration, no edema of lower extremity noted - Neurological Exam Neurological exam: Alert, CN II-XII Intact, Oriented x3, Reflexes Normal - Skin Skin Exam: Intact, Normal Color Discharge Plan - Follow Up Plan Condition: STABLE Disposition: HOME/ ROUTINE Instructions: Chest Pain (DC), Chest Pain (GEN) Additional Instructions: 1).follow up with Dr. Vasquez, referral for GI doctor for further workup, and cardiology for further cardiology workup. 2). Go to Emergency room for any persistent chest pain or shortness of breath. 3). Observe right groin for an swelling , bleeding and hematoma. 4). Observe right leg for any swelling , cool to touch , or any discoloration. Referrals: Edilma Vasquez DO [Primary Care Provider] - <Kike Sandhu - Last Filed: 04/09/17 17:15> Provider - Provider Date of Admission: 04/07/17 12:01 Attending physician: Kike Sandhu MD Primary care physician: Edilma Vasquez DO Hospital Course - Lab Results Lab Results: Most Recent Lab Values WBC 9.8 10^3/ul (4.5-11.0) 04/09/17 05:20 RBC 4.58 10^6/uL (3.5-6.1) 04/09/17 05:20 Hgb 11.9 g/dL (12.0-16.0) L 04/09/17 05:20 Hct 36.6 % (36.0-48.0) 04/09/17 05:20 MCV 79.9 fl (80.0-105.0) L 04/09/17 05:20 MCH 26.0 pg (25.0-35.0) 04/09/17 05:20 MCHC 32.5 g/dl (31.0-37.0) 04/09/17 05:20 RDW 16.1 % (11.5-14.5) H 04/09/17 05:20 Plt Count 237 10^3/uL (120.0-450.0) 04/09/17 05:20 MPV 10.1 fl (7.0-11.0) 04/09/17 05:20 Gran % 81.9 % (50.0-68.0) H 04/09/17 05:20 Lymph % (Auto) 11.3 % (22.0-35.0) L 04/09/17 05:20 [place] % (Auto) 5.5 % (1.0-6.0) 04/09/17 05:20 Eos % (Auto) 1.2 % (1.5-5.0) L 04/09/17 05:20 Baso % (Auto) 0.1 % (0.0-3.0) 04/09/17 05:20 Gran # 8.03 (1.4-6.5) H 04/09/17 05:20 Lymph # (Auto) 1.1 (1.2-3.4) L 04/09/17 05:20 [place] # (Auto) 0.5 (0.1-0.6) 04/09/17 05:20 Eos # (Auto) 0.1 (0.0-0.7) 04/09/17 05:20 Baso # (Auto) 0.01 K/mm3 (0.0-2.0) 04/09/17 05:20 D-Dimer, Quantitative < 200 ng/mL (0-243) 04/07/17 15:50 Sodium 140 mmol/L (132-148) 04/09/17 05:10 Potassium 4.6 mmol/L (3.6-5.0) 04/09/17 05:10 Chloride 108 mmol/L (98-107) H 04/09/17 05:10 Carbon Dioxide 25 mmol/L (21-33) 04/09/17 05:10 Anion Gap 12 (10-20) 04/09/17 05:10 BUN 12 mg/dL (7-21) 04/09/17 05:10 Creatinine 0.7 mg/dl (0.7-1.2) 04/09/17 05:10 Est GFR ( Amer) > 60 04/09/17 05:10 Est GFR (Non-Af Amer) > 60 04/09/17 05:10 POC Glucose (mg/dL) 111 mg/dL (65-110) H 04/08/17 21:11 Random Glucose 102 mg/dL (70-110) 04/09/17 05:10 Calcium 9.1 mg/dL (8.4-10.5) 04/09/17 05:10 Magnesium 1.9 mg/dL (1.7-2.2) 04/09/17 05:10 Total Bilirubin 0.5 mg/dL (0.2-1.3) 04/09/17 05:10 AST 17 U/L (14-36) 04/09/17 05:10 ALT 25 U/L (7-56) 04/09/17 05:10 Alkaline Phosphatase 80 U/L (38-126) 04/09/17 05:10 Lactate Dehydrogenase 336 U/L (333-699) 04/08/17 22:40 Total Creatine Kinase 52 U/L (35-230) 04/08/17 22:40 Troponin I 0.10 ng/mL 04/08/17 22:40 Total Protein 6.6 g/dL (5.8-8.3) 04/09/17 05:10 Albumin 3.4 g/dL (3.0-4.8) 04/09/17 05:10 Globulin 3.1 gm/dL 04/09/17 05:10 Albumin/Globulin Ratio 1.1 (1.1-1.8) 04/09/17 05:10 Triglycerides 84 mg/dL (35-160) 04/08/17 06:40 Cholesterol 139 mg/dL (130-200) 04/08/17 06:40 LDL Cholesterol Direct 66 mg/dL (0-129) 04/08/17 06:40 HDL Cholesterol 46 mg/dL (29-60) 04/08/17 06:40 Urine Color Light yellow (YELLOW) 04/07/17 09:56 Urine Appearance Clear (CLEAR) 04/07/17 09:56 Urine pH 6.5 (4.7-8.0) 04/07/17 09:56 Ur Specific [place] 1.020 (1.005-1.035) 04/07/17 09:56 Urine Protein Negative mg/dL (<30 mg/dL) 04/07/17 09:56 Urine Glucose (UA) Negative mg/dL (NEGATIVE) 04/07/17 09:56 Urine Ketones Negative mg/dL (NEGATIVE) 04/07/17 09:56 Urine Blood Negative (NEGATIVE) 04/07/17 09:56 Urine Nitrate Negative (NEGATIVE) 04/07/17 09:56 Urine Bilirubin Negative (NEGATIVE) 04/07/17 09:56 Urine Urobilinogen 0.2 E.U./dL (<1 E.U./dL) 04/07/17 09:56 Ur Leukocyte Esterase Trace Renetta/uL (NEGATIVE) H 04/07/17 09:56 Urine RBC Negative /hpf (0-2) 04/07/17 09:56 Urine WBC 0 - 2 /hpf (0-6) 04/07/17 09:56 Ur Epithelial Cells 0 - 2 /hpf (0-5) 04/07/17 09:56 Urine Bacteria None (NEG) 04/07/17 09:56 Urine Opiates Screen Negative (NEGATIVE) 04/07/17 09:56 Urine Methadone Screen Negative (NEGATIVE) 04/07/17 09:56 Ur Barbiturates Screen Negative (NEGATIVE) 04/07/17 09:56 Ur Phencyclidine Scrn Negative (NEGATIVE) 04/07/17 09:56 Ur Amphetamines Screen Negative (NEGATIVE) 04/07/17 09:56 U Benzodiazepines Scrn Negative (NEGATIVE) 04/07/17 09:56 U Oth Cocaine Metabols Negative (NEGATIVE) 04/07/17 09:56 U Cannabinoids Screen Negative (NEGATIVE) 04/07/17 09:56 Attending/Attestation - Attestation I have personally seen and examined this patient.: Yes I have fully participated in the care of the patient.: Yes I have reviewed all pertinent clinical information, including history, physical exam and plan: Yes Notes (Text): 04/09/17 17:10 36 year old female with past medical history of hypertension, not currently on medications, and active smoker who presented with complaint of chest pain. She was found to have indeterminate to mildly elevated troponin and started on aspirin, plavix, statin and lovenox. She underwent cardiac cath yesterday which showed normal coronaries. She also had CT angio which was negative. She had mildly dilated cbd and hemangioma for which patient was instructed to follow up with GI outpatient for possible MRCP/MRI.= Overnight events were reviewed; ?vasovagal. Today she is doing well. She denies any chest pain or other symptoms and expresses wishes to go home. Patient is discharged home to follow up with pmd. She was counselled on smoking cessation. Kike Sandhu MD Hospitalist.
[2017-04-09 16:28] VITALS: PULSE 67
--- NOTE | 2017-04-09 17:30 | CARD ---
APPROVED REPORT EXAM: Two-dimensional and M-mode echocardiogram with Doppler and color Doppler. INDICATION 2D DIMENSIONS IVSd1.0 (0.7-1.1cm)LVDd5.6 (3.9-5.9cm) PWd1.0 (0.7-1.1cm)LVDs3.9 (2.5-4.0cm) FS (%) 30.8 %LVEF (%)57.7 (>50%) M-Mode DIMENSIONS Left Atrium (MM)4.00 (2.5-4.0cm)Aortic Root3.30 (2.2-3.7cm) Aortic Cusp Exc.1.90 (1.5-2.0cm) Aortic Valve AoV Peak Htgkcsmy996.0cm/Jerzy Peak GR.15mmHg Mitral Valve MV E Cvwypian45.3cm/sMV A Hrlqthgm27.3cm/sE/A ratio1.6 TDI Lateral E' Peak V12.20cm/sMedial E' Peak V9.46cm/sE/Lateral E'7.3 E/Medial E'9.4 Tricuspid Valve TR Peak Efpmcdnn320ha/sRAP EGOTMQUA30wpZoSO Peak Gr.31mmHg [id number] LEFT VENTRICLE The left ventricle is normal size. There is normal left ventricular wall thickness. The left ventricular function is normal. The left ventricular ejection fraction is within the normal range. There is normal LV segmental wall motion. The left ventricular diastolic function is normal. RIGHT VENTRICLE The right ventricle is normal size. There is normal right ventricular wall thickness. The right ventricular systolic function is normal. ATRIA The left atrium is borderline dilated. The right atrium size is normal. AORTIC VALVE The aortic valve is normal in structure. No aortic regurgitation is present. There is no aortic valvular stenosis. MITRAL VALVE The mitral valve is normal in structure. Mitral regurgitation is trace to mild. There is no mitral valve stenosis. TRICUSPID VALVE There is mild tricuspid regurgitation. There is mild pulmonary hypertension. GREAT VESSELS The aortic root is normal in size. The IVC was not visualized. PERICARDIAL EFFUSION There is no pericardial effusion. <Conclusion> The left ventricle is normal size. There is normal left ventricular wall thickness. The left ventricular function is normal. The left ventricular ejection fraction is within the normal range. There is normal LV segmental wall motion. The left ventricular diastolic function is normal. Mitral regurgitation is trace to mild. There is mild tricuspid regurgitation. There is mild pulmonary hypertension.
[2017-04-09 17:48] VITALS: BP 149/96; RESP 20; TEMP 97.9
--- NOTE | 2017-04-09 18:29 | PN ---
DATE: SUBJECTIVE: The patient denies chest pain or shortness of breath. Cardiac catheterization was reviewed yesterday which revealed normal coronary anatomy. CT angiogram was negative for pulmonary embolism. Patient was reported to me to have rapid response last night, has some discomfort in the right groin and pulse on the monitor. There was no reported chest pain. PHYSICAL EXAMINATION VITAL SIGNS: Blood pressure 126/73, heart rate 64, temperature 98.9, respirations 18. HEENT: Normocephalic. CHEST: Clear. Heart sounds are regular. EXTREMITIES: No edema. LABORATORY DATA: Today's SMA-7 is within normal limits, except for chloride of 108. Hemoglobin and hematocrit are 11.9 and 36.7. Arterial duplex of the right lower extremity revealed no sonographic illness or pseudoaneurysmal AV fistula. ASSESSMENT: myocardial infarction is ruled out. 2. Mild pulmonary hypertension. CONDITIONS: The patient was advised to quit smoking. Continue current Lipitor and Pepcid. Follow up with her primary physician. Ren Rivera MD
== END 2017-04-09 17:30 | disposition home or self-care (01) ==
LOC: ED 09:18 → ERH 12:01 → 3RSO 14:14 → 2RNO 04-08 15:01
PROVIDERS: ADMIT Internal Medicine; ATTEND Internal Medicine
DX: R07.89 Other chest pain (principal); I10 Essential (primary) hypertension; F17.210 Nicotine dependence, cigarettes, uncomplicated; R00.1 Bradycardia, unspecified; I27.20 Pulmonary hypertension, unspecified; E66.9 Obesity, unspecified; Z68.35 Body mass index [BMI] 35.0-35.9, adult; K21.9 Gastro-esophageal reflux disease without esophagitis; K80.20 Calculus of gallbladder without cholecystitis without obstruction; Z82.49 Family history of ischemic heart disease and other diseases of the circulatory system
CPT/HCPCS: 36415; 71045; 71275; 76705; 80053; 80061; 80324; 80345; 80346; 80349; 80353; 80358; 80361; 81001; 82550; 82948; 83615; 83735; 83992; 84484; 85025; 85378; 87086; 93005; 93306; 93458; 93923; 96372; 96374; 96375; 99152; 99153; 99283; C1760; C1769; C1887; C2629; G0378; J1644; J1650; J1885; J2250; J2270; J2405; J3010; J7030; J7040; Q9967

== ENCOUNTER 2017-04-13 10:47 | Emergency (ER) | payer MEDICAID ==
[2017-04-13 10:47] VITALS: BMI 35.2
[2017-04-13 11:28] VITALS: TEMP 98.4
--- NOTE | 2017-04-13 13:01 | ED PDOC ---
Arrival/HPI - General Chief Complaint: Lower Extremity Problem/Injury Time Seen by Provider: 04/13/17 11:11 Historian: Patient - History of Present Illness Narrative History of Present Illness (Text): 04/13/17 12:59 36yo female present with complaint of right groin pain s/p Cardiac Cath last week. Patient states it was inserted in the area. Saw her PMD yesterday and was referred to the ED. States she was given a prescription of Ibuprofen, but haven' t taken it. she denies fever, chills, redness, nausea, vomiting,any other complaint. Past Medical History - Provider Review Nursing Documentation Reviewed: Yes - Infectious Disease Hx of Infectious Diseases: None - Reproductive Menopause: No - Cardiac Hx Heart Murmur: Yes Hx Hypertension: Yes Other/Comment: cardiac cath last wk - HEENT Other/Comment: WEARS GLASSES, CONTACTS - Hematological/Oncological Hx Anemia: Yes - Musculoskeletal/Rheumatological Hx Falls: No - Gastrointestinal Hx Gastroesophageal Reflux: Yes Other/Comment: colonoscopy/endoscopy - Genitourinary/Gynecological Other/Comment: mammography - Psychiatric Hx Substance Use: No - Anesthesia Hx Anesthesia: No - Suicidal Assessment Feels Threatened In Home Enviroment: No Family/Social History - Physician Review Nursing Documentation Reviewed: Yes Family/Social History: Unknown Family HX Smoking Status: Never Smoked Hx Alcohol Use: Yes (social) Frequency of alcohol use: Socially Hx Substance Use: No Allergies/Home Meds Allergies/Adverse Reactions: Allergies No Known Allergies Allergy (Verified 04/13/17 11:16) Home Medications: Home Meds Medication Instructions Recorded Confirmed No Known Home Med 09/14/16 04/13/17 Review of Systems - Physician Review All systems were reviewed & negative as marked: Yes - Review of Systems Constitutional: Normal Eyes: Normal ENT: Normal Respiratory: Normal Cardiovascular: Normal Gastrointestinal: Other (right groin/pelvic pain) Genitourinary Female: Normal, Other Musculoskeletal: Normal Skin: Normal Neurological: Normal Endocrine: Normal Hemo/Lymphatic: Normal Psychiatric: Normal Physical Exam Vital Signs Reviewed: Yes Vital Signs Temp Pulse Resp BP Pulse Ox 04/13/17 13:22 77 16 146/58 L 99 04/13/17 12:10 98.4 F 04/13/17 11:27 98.4 F 145/78 04/13/17 11:12 100.2 F H 102 H 18 152/116 H 97 Temperature: Afebrile Blood Pressure: Normal Pulse: Regular Respiratory Rate: Normal Appearance: Positive for: Well-Appearing, Non-Toxic, Comfortable Pain Distress: None Mental Status: Positive for: Alert and Oriented X 3 - Systems Exam Head: Present: Atraumatic, Normocephalic Pupils: Present: PERRL Extroacular Muscles: Present: EOMI Conjunctiva: Present: Normal Mouth: Present: Moist Mucous Membranes Neck: Present: Normal Range of Motion Respiratory/Chest: Present: Clear to Auscultation, Good Air Exchange. No: Respiratory Distress, Accessory Muscle Use Cardiovascular: Present: Regular Rate and Rhythm, Normal S1, S2. No: Murmurs Abdomen: Present: Tenderness (Right pelvic tenderness. No erythema. No warmth. Mild induration to area noted), Normal Bowel Sounds, Other (soft). No: Distention, Peritoneal Signs, Rebound, Guarding, McBurney's Point Tender, Rovsing's Sign Present Back: Present: Normal Inspection Upper Extremity: Present: Normal Inspection. No: Cyanosis, Edema Lower Extremity: Present: Normal Inspection. No: Edema Neurological: Present: GCS=15, CN II-XII Intact, Speech Normal Skin: Present: Warm, Dry, Normal Color. No: Rashes Psychiatric: Present: Alert, Oriented x 3, Normal Insight, Normal Concentration Medical Decision Making ED Course and Treatment: 04/13/17 13:43 PT in ED for stated history. No sign of infection noted. Pt's pain was controlled in ED LE dopper was ordered to r/o pseudo aneurysm case was SAMAN Scott and he states he will stop by the ED to see pt. doppler US FINDINGS: The right common femoral artery is patent with a normal triphasic waveform. No sonographic evidence of a pseudoaneurysm or AV fistula is seen. The right superficial femoral artery and profunda femoral artery are patent proximally. The visualized venous segments the right groin are patent and compressible. Incidental note is made of 1.5 cm hyperplastic lymph node with a fatty hilum. IMPRESSION: 1. No sonographic evidence for pseudoaneurysm or AV fistula in the right groin. Result was DW the pt. 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 scott. - RAD Interpretation Radiology Orders: 04/13/17 11:36 DUPLEX LOWER EXTRM ARTR RIGHT [US] Stat - Medication Orders Current Medication Orders: Discontinued Medications Ibuprofen (Motrin Tab) 600 mg PO STAT STA Stop: 04/13/17 11:50 Last Admin: 04/13/17 12:10 Dose: 600 mg MAR Pain/Vitals Document 04/13/17 12:10 MS (Rec: 04/13/17 12:12 MS [id number]) Pain Reassessment Is This A Pain ReAssessment? No Sleep Is patient sleeping during reassessment? No Presence of Pain Presence of Pain Yes Pain Scale Used Pain Scale Used Numeric Location Upper or Lower Lower Pain Location Body Site Abdomen Description Intermittent Intensity 8 Scale Used Numeric Vitals Temperature (97.6 F-99.6 F) 98.4 F Temperature Source Oral Disposition/Present on Arrival - Present on Arrival Any Indicators Present on Arrival: No History of DVT/PE: No History of Uncontrolled Diabetes: No Urinary Catheter: No History of Decub. Ulcer: No History Surgical Site Infection Following: None - Disposition Have Diagnosis and Disposition been Completed?: Yes Diagnosis: Pelvic pain Disposition: HOME/ ROUTINE Disposition Time: 13:50 Patient Plan: Discharge Condition: STABLE Discharge Instructions (ExitCare): Acute Pelvic Pain Additional Instructions: Follow up with your doctor Apply ice compress to area and take medication as was directed by your Doctor return to ED for any new symptoms Referrals: Stiven Scott MD [Staff Provider] - Follow up with primary Forms: [employer] (Thai)
[2017-04-13 13:24] VITALS: BP 146/58; PULSE 77; RESP 16; O2SAT 99
--- NOTE | 2017-04-13 13:38 | US ---
PROCEDURE: Duplex arterial ultrasound of the right groin. HISTORY: Recent cardiac catheterization. Pain and pulsatile mass in the right groin. Evaluate for pseudoaneurysm or fistula. PHYSICIAN(S): Stiven Anna MD. FINDINGS: The right common femoral artery is patent with a normal triphasic waveform. No sonographic evidence of a pseudoaneurysm or AV fistula is seen. The right superficial femoral artery and profunda femoral artery are patent proximally. The visualized venous segments the right groin are patent and compressible. Incidental note is made of 1.5 cm hyperplastic lymph node with a fatty hilum. IMPRESSION: 1. No sonographic evidence for pseudoaneurysm or AV fistula in the right groin.
== END 2017-04-13 14:45 | disposition home or self-care (01) ==
LOC: ED 10:47
DX: R10.2 Pelvic and perineal pain (principal); I10 Essential (primary) hypertension

== ENCOUNTER 2018-05-26 13:31 | Outpatient (CLI) | payer MEDICAID | END 2018-05-26 13:32 | disposition home or self-care (01) | LOC: RAD 13:31 ==

== ENCOUNTER 2018-06-07 08:07 | Outpatient (CLI) | payer MEDICAID | END 2018-06-07 08:08 | disposition home or self-care (01) | LOC: RAD 08:07 ==

== ENCOUNTER 2018-06-30 13:33 | Outpatient (CLI) | payer MEDICAID | END 2018-06-30 13:34 | disposition home or self-care (01) | LOC: RAD 13:33 ==